=== PATIENT | female | born 1955 | race Caucasian/White ===

== ENCOUNTER → 2017-09-08 | Outpatient (CLI) | payer OTHER ==
[~2017-09-08] MED LIST: CEPH-578 PO; DIPH25TA51 PO; FLUT9.9S NS; NAPR-1192 PO; TYL3 PO
== END | disposition home or self-care (01) ==
LOC: OIH 15:37
PROVIDERS: ATTEND Internal Medicine
DX: S93.402A Sprain of unspecified ligament of left ankle, initial encounter (principal); M77.32 Calcaneal spur, left foot; X58.XXXA Exposure to other specified factors, initial encounter; Y93.89 Activity, other specified; Y92.89 Other specified places as the place of occurrence of the external cause; Y99.8 Other external cause status; M79.89 Other specified soft tissue disorders
CPT/HCPCS: 73600

== ENCOUNTER → 2017-09-21 | Outpatient (CLI) | payer OTHER | END | disposition home or self-care (01) | LOC: RAH 15:09 | PROVIDERS: ATTEND Internal Medicine | DX: M48.07 Spinal stenosis, lumbosacral region (principal); M48.05 Spinal stenosis, thoracolumbar region; M54.16 Radiculopathy, lumbar region | CPT/HCPCS: 72148 ==

== ENCOUNTER → 2017-09-28 | Outpatient (CLI) | payer OTHER | END | disposition home or self-care (01) | LOC: RAH 10:49 | PROVIDERS: ATTEND Orthopaedic Surgery | DX: M25.811 Other specified joint disorders, right shoulder (principal); M89.311 Hypertrophy of bone, right shoulder | CPT/HCPCS: 73221 ==

== ENCOUNTER → 2017-12-25 | Outpatient (CLI) | payer OTHER | END | disposition home or self-care (01) | LOC: OIH 12:42 | PROVIDERS: ATTEND Internal Medicine | DX: M47.895 Other spondylosis, thoracolumbar region (principal); G47.33 Obstructive sleep apnea (adult) (pediatric) | CPT/HCPCS: 71046 ==

== ENCOUNTER 2018-01-01 09:46 | Day surgery (SDC) | payer OTHER ==
[2017-12-31 14:31] VITALS: BP 122/72
[2018-01-01] VITALS (15 sets, daily range): BP systolic 111–139; BP diastolic 56–82
[~2018-01-01] VITALS: Ht 157.5 cm; Wt 122.9 kg
[~2018-01-01 09:46] MED LIST changes: +CEFAZOLIN 3GM /D5W 100ML 100 ML IV SCH; -CEPH-578 PO; -NAPR-1192 PO
[2018-01-01] MEDS ORDERED: LACTATED RINGERS 1000ML 1,000 ML IV ONE (10:27)
[2018-01-01] MEDS ORDERED: CEFAZOLIN SODIUM 1 GM VIAL ONE (10:27)
[2018-01-01] MEDS ORDERED: LIDOCAINE PF 2% 5ML ABBOJECT ONE ×2 (13:26→18:32)
[2018-01-01] MEDS ORDERED: PROPOFOL 10 MG/ML 20ML VIAL IV ONE (13:26)
[2018-01-01] MEDS ORDERED: DEXAMETHASONE SOD PHOSPHATE 10MG/ML 1ML VIAL ONE ×2 (13:26→18:32)
[2018-01-01] MEDS ORDERED: GLYCOPYRROLATE 0.2 MG/ML 5 ML VIAL ONE ×2 (13:26→18:32)
[2018-01-01] MEDS ORDERED: ONDANSETRON HCL 4 MG/2 ML VIAL ONE ×3 (13:26→18:32)
[2018-01-01] MEDS ORDERED: MIDAZOLAM HCL 1 MG/ML 2ML VIAL ONE (13:27)
[2018-01-01] MEDS ORDERED: FENTANYL CITRATE PF 50 MCG/1 ML 2ML VIAL ONE (13:27)
[2018-01-01] MEDS ORDERED: EPINEPHRINE 1 MG/ML 30ML VIAL IJ ONE (14:18)
[2018-01-01] MEDS ORDERED: NEOSTIGMINE METHYLSULFATE 1MG/ML IV ONE (18:32)
[2018-01-01] MEDS ORDERED: LIDOCAINE HCL-MPF 1% 5ML AMP IJ ONE (18:32)
[2018-01-01] MEDS ORDERED: LIDOCAINE HCL 4% LTA SOL 4 ML VIAL ONE (18:32)
[2018-01-01] MEDS ORDERED: ROCURONIUM BROMIDE 10MG/1ML 5ML VL ONE (18:32)
[2018-01-01] MEDS ORDERED: CEPH-578 PO (18:40)
[2018-01-01] MEDS ORDERED: TYL3 PO (18:40)
[2018-01-01] MEDS ORDERED: NAPR-1192 PO (18:40)
== END 2018-01-01 20:34 | disposition home or self-care (01) ==
LOC: DAH 09:46
PROVIDERS: ATTEND Orthopaedic Surgery
DX: M75.101 Unspecified rotator cuff tear or rupture of right shoulder, not specified as traumatic (principal); M75.41 Impingement syndrome of right shoulder; M19.011 Primary osteoarthritis, right shoulder; G89.29 Other chronic pain; G47.00 Insomnia, unspecified; M06.9 Rheumatoid arthritis, unspecified; E66.01 Morbid (severe) obesity due to excess calories; Z68.42 Body mass index [BMI] 45.0-49.9, adult
CPT/HCPCS: 29822; 29824; 29826; A4218; A4565; A4649 ×3; A4930; A6207; G0168; J0171; J0690; J1100 ×2; J2001 ×2; J2250; J2405 ×3; J2704; J2710; J3010; J3490 ×4; J7120 ×2

== ENCOUNTER 2018-07-17 04:43 | Emergency (ER) | payer OTHER ==
[~2018-07-17 04:43] MED LIST changes: -CEFAZOLIN 3GM /D5W 100ML 100 ML IV SCH; +CEPH-578 PO; +NAPR-1192 PO
[2018-07-17 05:19] LABS: APPEARANCE,URINE CLEAR (CLEAR); BILIRUBIN,URINE NEGATIVE (NEGATIVE); COLOR,URINE YELLOW (YELLOW); GLUCOSE, URINE (UA) NEGATIVE (NEGATIVE); KETONES,URINE NEGATIVE (NEGATIVE); LEUKOCYTE ESTERASE ,URINE TRACE (NEGATIVE); NITRATE,URINE NEGATIVE (NEGATIVE); OCCULT BLOOD,URINE TRACE-INTACT (NEGATIVE); PROTEIN,URINE NEGATIVE (NEGATIVE); UROBILINOGEN,URINE 0.2 mg/dL (0.2-1.0)
[2018-07-17] MEDS ORDERED: METHYLPREDNISOLONE SOD SUCC 125MG/2ML VIAL ONE (05:25)
[2018-07-17 05:27] LABS: BACTERIA,URINE Many /HPF (None Seen); RBC,URINE 0-1 /HPF (0-1)
[2018-07-17] MEDS ORDERED: IPRATROPIUM/ALBUTEROL SULFATE 3 ML SOLUTION IH ONE ×3 (05:32→06:40)
== END 2018-07-17 07:04 | disposition home or self-care (01) ==
LOC: EDH 04:43
DX: J20.9 Acute bronchitis, unspecified (principal); J06.9 Acute upper respiratory infection, unspecified; Z88.8 Allergy status to other drugs, medicaments and biological substances; Z90.710 Acquired absence of both cervix and uterus; Z72.0 Tobacco use; Z98.890 Other specified postprocedural states
CPT/HCPCS: 71045; 81001; 87804 ×2; 93005; 94640; 99285; J2930

== ENCOUNTER → 2018-11-04 | Outpatient (CLI) | payer OTHER | END | disposition home or self-care (01) | LOC: OIH 15:16 | PROVIDERS: ATTEND Internal Medicine | DX: M19.072 Primary osteoarthritis, left ankle and foot (principal) | CPT/HCPCS: 73560; 73620 ==

== ENCOUNTER → 2018-12-07 | Outpatient (CLI) | payer OTHER ==
--- NOTE | 2018-12-08 03:42 | NUR ---
PATIENT STATES SHE WANTS TO STOP SLEEP STUDY AND GO HOME DUE TO BACK PAIN FROM SLEEPING IN BED. REFUSED TO CONTINUE SLEEP STUDY AFTER SHE WAS EXPLAINED THAT IT'S BEST TO CONTINUE STUDY UNTIL 5 AM .
== END | disposition home or self-care (01) ==
LOC: SLP 20:18
PROVIDERS: ATTEND Internal Medicine
DX: G47.30 Sleep apnea, unspecified (principal)
CPT/HCPCS: 95810

== ENCOUNTER → 2018-12-15 | Outpatient (CLI) | payer OTHER | END | disposition home or self-care (01) | LOC: RAH 14:33 | PROVIDERS: ATTEND Internal Medicine | DX: M48.061 Spinal stenosis, lumbar region without neurogenic claudication (principal); M54.16 Radiculopathy, lumbar region | CPT/HCPCS: 72148 ==

== ENCOUNTER → 2018-12-20 | Outpatient (CLI) | payer OTHER | END | disposition home or self-care (01) | LOC: SLP 20:21 | PROVIDERS: ATTEND Internal Medicine | DX: G47.30 Sleep apnea, unspecified (principal) | CPT/HCPCS: 95811 ==

== ENCOUNTER → 2019-02-09 | Outpatient (CLI) | payer OTHER ==
[~2019-02-09] MED LIST changes: +REGADENOSON 0.4 MG/5 ML PF SYG IVP SCH
== END | disposition home or self-care (01) ==
LOC: RAH 08:35
PROVIDERS: ATTEND Internal Medicine
DX: I20.9 Angina pectoris, unspecified (principal)
CPT/HCPCS: 78452; 93017; 96374; A9500 ×2; J2785

== ENCOUNTER → 2019-02-10 | Outpatient (CLI) | payer OTHER ==
[~2019-02-10] MED LIST changes: -REGADENOSON 0.4 MG/5 ML PF SYG IVP SCH
== END | disposition home or self-care (01) ==
LOC: RAH 08:28
PROVIDERS: ATTEND Internal Medicine
DX: I51.7 Cardiomegaly (principal); I31.3 Pericardial effusion (noninflammatory)
CPT/HCPCS: 93306

== ENCOUNTER → 2019-03-14 | Outpatient (CLI) | payer OTHER ==
[~2019-03-14] MED LIST changes: +BIOT10005 SL; +UMEC1DIS IH
== END | disposition home or self-care (01) ==
LOC: OIH 10:34
PROVIDERS: ATTEND Internal Medicine
DX: J44.9 Chronic obstructive pulmonary disease, unspecified (principal)
CPT/HCPCS: 71046

== ENCOUNTER 2019-03-19 01:14 | Emergency (ER) | payer OTHER ==
[~2019-03-19 01:14] MED LIST changes: -CEPH-578 PO; -FLUT9.9S NS; -NAPR-1192 PO; -TYL3 PO
[2019-03-19] MEDS ORDERED: OXYCODONE/ACETAMIN 5/325MG TAB ONE ×2 (01:50→03:18)
[2019-03-19] MEDS ORDERED: KETOROLAC TROMETHAMINE 30MG/ML ONE (01:50)
[2019-03-19 01:56] LABS: BASOPHILS % (AUTO) 0.4 % (0.0-5.0); EOSINOPHILS % (AUTO) 0.8 % (0.0-8.0); HEMATOCRIT 40.8 % (36-48); MEAN CORPUSCULAR HEMOGLOBIN 31.1 pg (27.0-33.0); MEAN CORPUSCULAR HGB CONC 33.3 g/dL (32.0-36.0); MEAN CORPUSCULAR VOLUME 93.4 fL (79-99); MONOCYTES % (AUTO) 9.3 % (3.0-13.0); NEUTROPHILS % (AUTO) 72.5 % (40.0-77.0); PLATELET COUNT (AUTO) 205 K/uL (130-400); RED BLOOD CELL COUNT(AUTO) 4.37 MIL/uL (4.00-5.50); RED CELL DISTRIBUTION WIDTH 14.2 % (11.0-15.5); WHITE BLOOD COUNT (AUTO) 13.3 K/uL (4.8-10.8)
[2019-03-19 02:00] LABS: APPEARANCE,URINE Clear (CLEAR); BILIRUBIN,URINE Negative (NEGATIVE); COLOR,URINE Yellow (YELLOW); GLUCOSE, URINE (UA) Negative (NEGATIVE); KETONES,URINE Negative (NEGATIVE); LEUKOCYTE ESTERASE ,URINE Negative (NEGATIVE); NITRATE,URINE Negative (NEGATIVE); OCCULT BLOOD,URINE Negative (NEGATIVE); PH,URINE 6.5 (5.0-8.0); PROTEIN,URINE Negative (NEGATIVE); UROBILINOGEN,URINE 0.2 mg/dL (0.2-1.0)
[2019-03-19 02:10] LABS: CREATININE 0.9 mg/dL (0.5-1.5); CRP QUANTITATIVE 74.4 mg/L (0.00-9.0); POTASSIUM 3.8 mmol/L (3.5-5.1)
[2019-03-19] MEDS ORDERED: METHYLPREDNISOLONE SOD SUCC 125MG/2ML VIAL ONE (03:18)
== END 2019-03-19 03:38 | disposition home or self-care (01) ==
LOC: EDH 01:14
DX: M54.5 Low back pain (principal); J44.9 Chronic obstructive pulmonary disease, unspecified; Z90.710 Acquired absence of both cervix and uterus; Z96.652 Presence of left artificial knee joint; Z88.5 Allergy status to narcotic agent; Z88.8 Allergy status to other drugs, medicaments and biological substances; Z72.0 Tobacco use
CPT/HCPCS: 36415; 72131; 80048; 81003; 85025; 86140; 96372 ×2; 99285; J1885; J2930

== ENCOUNTER 2019-10-14 20:23 | Emergency (ER) | payer OTHER ==
[2019-10-14] MEDS ORDERED: GUAIFENESIN SUGAR-FREE 100 MG/5 ML UDCUP ONE (21:12)
[2019-10-14 21:27] LABS: BASOPHILS % (AUTO) 0.4 % (0.0-5.0); EOSINOPHILS % (AUTO) 0.8 % (0.0-8.0); LYMPHOCYTES % (AUTO) 30.9 % (21.0-51.0); MEAN CORPUSCULAR HEMOGLOBIN 29.7 pg (27.0-33.0); MEAN CORPUSCULAR HGB CONC 32.6 g/dL (32.0-36.0); MEAN CORPUSCULAR VOLUME 91.3 fL (79-99); MONOCYTES % (AUTO) 7.1 % (3.0-13.0); NEUTROPHILS % (AUTO) 60.3 % (40.0-77.0); PLATELET COUNT (AUTO) 174 K/uL (130-400); RED BLOOD CELL COUNT(AUTO) 5.15 MIL/uL (4.00-5.50); RED CELL DISTRIBUTION WIDTH 13.8 % (11.0-15.5); WHITE BLOOD COUNT (AUTO) 8.3 K/uL (4.8-10.8)
[2019-10-14] MEDS ORDERED: IPRATROPIUM/ALBUTEROL SULFATE 3 ML SOLUTION IH ONE (21:29)
[2019-10-14 21:39] LABS: CREATININE 0.9 mg/dL (0.5-1.5); POTASSIUM 3.5 mmol/L (3.5-5.1)
[2019-10-14 21:44] LABS: ALBUMIN 3.8 g/dL (3.5-5.0); BILIRUBIN,TOTAL 0.5 mg/dL (0.2-1.0); TOTAL PROTEIN, SERUM 7.7 g/dL (6.0-8.3)
== END 2019-10-14 22:53 | disposition home or self-care (01) ==
LOC: EDH 20:23
DX: J44.1 Chronic obstructive pulmonary disease with (acute) exacerbation (principal); A08.4 Viral intestinal infection, unspecified; Z88.6 Allergy status to analgesic agent; Z90.710 Acquired absence of both cervix and uterus; Z98.890 Other specified postprocedural states; Z72.0 Tobacco use; Z88.8 Allergy status to other drugs, medicaments and biological substances
CPT/HCPCS: 36415; 71046; 80053; 85025; 93005; 94640

== ENCOUNTER 2019-10-23 22:13 | Emergency (ER) | payer OTHER | END 2019-10-23 23:49 | disposition home or self-care (01) | LOC: EDH 22:13 | DX: S61.237A Puncture wound without foreign body of left little finger without damage to nail, initial encounter (principal); J44.9 Chronic obstructive pulmonary disease, unspecified; Z88.5 Allergy status to narcotic agent; Z88.8 Allergy status to other drugs, medicaments and biological substances; Z96.652 Presence of left artificial knee joint; Z90.710 Acquired absence of both cervix and uterus; Z98.890 Other specified postprocedural states; Z72.0 Tobacco use; W46.0XXA Contact with hypodermic needle, initial encounter; Y93.89 Activity, other specified; Y92.89 Other specified places as the place of occurrence of the external cause; Y99.0 Civilian activity done for income or pay | CPT/HCPCS: 36415; 80074; 86701; 87390 ==

== ENCOUNTER → 2020-12-10 | Outpatient (CLI) | payer OTHER ==
[2020-12-10 09:14] LABS: BASOPHILS % (AUTO) 0.7 % (0.0-5.0); EOSINOPHILS % (AUTO) 2.1 % (0.0-8.0); HEMATOCRIT 42.9 % (36-48); LYMPHOCYTES % (AUTO) 26.9 % (21.0-51.0); MEAN CORPUSCULAR HEMOGLOBIN 30.3 pg (27.0-33.0); MEAN CORPUSCULAR HGB CONC 32.4 g/dL (32.0-36.0); MEAN CORPUSCULAR VOLUME 93.7 fL (79-99); MONOCYTES % (AUTO) 7.4 % (3.0-13.0); NEUTROPHILS % (AUTO) 62.2 % (40.0-77.0); PLATELET COUNT (AUTO) 193 K/uL (130-400); RED BLOOD CELL COUNT(AUTO) 4.58 MIL/uL (4.00-5.50); RED CELL DISTRIBUTION WIDTH 13.4 % (11.0-15.5); WHITE BLOOD COUNT (AUTO) 8.2 K/uL (4.8-10.8)
[2020-12-10 09:22] LABS: HEMOGLOBIN A1C 5.9 % (4.0-6.0)
[2020-12-10 09:51] LABS: ALBUMIN 3.3 g/dL (3.5-5.0); BILIRUBIN,DIRECT 0.1 mg/dL (0.0-0.3); BILIRUBIN,TOTAL 0.4 mg/dL (0.2-1.0); CREATININE 0.9 mg/dL (0.5-1.5); POTASSIUM 4.1 mmol/L (3.5-5.1); THYROID STIMULATING HORMONE 1.32 uIU/mL (0.36-3.74); TOTAL PROTEIN, SERUM 6.6 g/dL (6.0-8.3)
== END | disposition home or self-care (01) ==
LOC: LAB 08:39
PROVIDERS: ATTEND Internal Medicine
DX: B07.0 Plantar wart (principal); D75.1 Secondary polycythemia; E53.8 Deficiency of other specified B group vitamins; F43.21 Adjustment disorder with depressed mood; G47.33 Obstructive sleep apnea (adult) (pediatric); L65.9 Nonscarring hair loss, unspecified; M54.12 Radiculopathy, cervical region
CPT/HCPCS: 36415; 80053; 80061; 80076; 82306; 82607; 83036; 84443; 85025

== ENCOUNTER 2021-03-14 06:11 | Day surgery (SDC) | payer OTHER ==
[2021-03-11 09:45] VITALS: BP 164/81
[2021-03-11 09:59] LABS: BASOPHILS % (AUTO) 0.5 % (0.0-5.0); HEMATOCRIT 41.8 % (36-48); LYMPHOCYTES % (AUTO) 16.5 % (21.0-51.0); MEAN CORPUSCULAR HEMOGLOBIN 30.4 pg (27.0-33.0); MEAN CORPUSCULAR HGB CONC 32.5 g/dL (32.0-36.0); MEAN CORPUSCULAR VOLUME 93.5 fL (79-99); MONOCYTES % (AUTO) 9.4 % (3.0-13.0); NEUTROPHILS % (AUTO) 69.7 % (40.0-77.0); PLATELET COUNT (AUTO) 173 K/uL (130-400); RED BLOOD CELL COUNT(AUTO) 4.47 MIL/uL (4.00-5.50); RED CELL DISTRIBUTION WIDTH 14.1 % (11.0-15.5); WHITE BLOOD COUNT (AUTO) 9.2 K/uL (4.8-10.8)
[2021-03-11 10:21] LABS: CREATININE 0.9 mg/dL (0.5-1.5); POTASSIUM 3.9 mmol/L (3.5-5.1)
[~2021-03-14] VITALS: Ht 157.5 cm; Wt 122.0 kg
[2021-03-14] VITALS (16 sets, daily range): BP systolic 123–146; BP diastolic 53–81
[~2021-03-14 06:11] MED LIST changes: +BACL10TA PO; -BIOT10005 SL; +CEFAZOLIN SODIUM 1 GM VIAL IVP SCH; -DIPH25TA51 PO; +GABA-529 PO; +SERT100T PO; -UMEC1DIS IH
[2021-03-14] MEDS ORDERED: LACTATED RINGERS 1000ML 1,000 ML IV ONE (06:49)
[2021-03-14] MEDS ORDERED: CEFAZOLIN SODIUM 1 GM VIAL ONE (07:03)
[2021-03-14] MEDS ORDERED: LIDOCAINE HCL-MPF 0.5% 50ML VIAL IJ ONE (07:48)
[2021-03-14] MEDS ORDERED: FENTANYL CITRATE PF 50 MCG/1 ML 2ML VIAL ONE (07:52)
[2021-03-14] MEDS ORDERED: MIDAZOLAM HCL 1 MG/ML 2ML VIAL ONE ×3 (07:52→09:05)
[2021-03-14] MEDS ORDERED: LIDOCAINE HCL 1% 20 ML VIAL ONE (09:17)
[2021-03-14] MEDS ORDERED: PROPOFOL 10 MG/ML 20ML VIAL IV ONE (09:22)
[2021-03-14] MEDS: BUPIVACAINE/PF 0.5% 10ML VIAL ONE ×2 (09:27→09:40)
[2021-03-14] MEDS ORDERED: CEPH500B PO (09:58)
[2021-03-14] MEDS ORDERED: TRAM50TA4 PO (09:58)
[2021-03-14] MEDS ORDERED: IPRATROPIUM/ALBUTEROL SULFATE 3 ML SOLUTION IH ONE (10:06)
[2021-03-14] MEDS ORDERED: ALBUTEROL 0.083% 2.5 MG/3 ML INH IH ONE (10:38)
== END 2021-03-14 11:25 | disposition home or self-care (01) ==
LOC: DAH 06:11
PROVIDERS: ATTEND Orthopaedic Surgery
DX: G56.03 Carpal tunnel syndrome, bilateral upper limbs (principal); Z20.822 Contact with and (suspected) exposure to COVID-19; J44.9 Chronic obstructive pulmonary disease, unspecified; G47.30 Sleep apnea, unspecified; E66.9 Obesity, unspecified; F17.210 Nicotine dependence, cigarettes, uncomplicated; M06.9 Rheumatoid arthritis, unspecified; Z98.890 Other specified postprocedural states; Z90.710 Acquired absence of both cervix and uterus; Z99.89 Dependence on other enabling machines and devices; Z98.49 Cataract extraction status, unspecified eye; Z68.42 Body mass index [BMI] 45.0-49.9, adult
CPT/HCPCS: 36415; 64721; 80048; 85025; 87635; 93005; 94640 ×2; A4215 ×2; A4221; A4222; A4223; A4565; A4649; A4657; A4663; A4930 ×3; A6223; C9803; J0690 ×2; J2250 ×3; J2704; J3010; J3490 ×2; J7120

== ENCOUNTER 2021-04-11 06:19 | Day surgery (SDC) | payer OTHER ==
[2021-04-08 12:05] LABS: BASOPHILS % (AUTO) 0.8 % (0.0-5.0); EOSINOPHILS % (AUTO) 4.3 % (0.0-8.0); MEAN CORPUSCULAR HEMOGLOBIN 30.3 pg (27.0-33.0); MEAN CORPUSCULAR HGB CONC 32.2 g/dL (32.0-36.0); MEAN CORPUSCULAR VOLUME 94.3 fL (79-99); MONOCYTES % (AUTO) 7.2 % (3.0-13.0); NEUTROPHILS % (AUTO) 58.1 % (40.0-77.0); PLATELET COUNT (AUTO) 175 K/uL (130-400); RED BLOOD CELL COUNT(AUTO) 4.35 MIL/uL (4.00-5.50); RED CELL DISTRIBUTION WIDTH 14.3 % (11.0-15.5); WHITE BLOOD COUNT (AUTO) 6.6 K/uL (4.8-10.8)
[2021-04-08 12:18] LABS: CREATININE 0.8 mg/dL (0.5-1.5); POTASSIUM 3.8 mmol/L (3.5-5.1)
[2021-04-10 13:21] VITALS: BP 136/86
[2021-04-11] VITALS (11 sets, daily range): BP systolic 118–147; BP diastolic 70–86
[~2021-04-11] VITALS: Ht 157.5 cm; Wt 123.9 kg
[~2021-04-11 06:19] MED LIST changes: +ALBU0.63 IH; +CEFAZOLIN 3GM /D5W 100ML 100 ML IV SCH; -CEFAZOLIN SODIUM 1 GM VIAL IVP SCH
[2021-04-11] MEDS ORDERED: LACTATED RINGERS 1000ML 1,000 ML IV ONE (07:00)
[2021-04-11] MEDS: CEFAZOLIN SODIUM 1 GM VIAL ONE ×2 (07:20→08:36)
[2021-04-11] MEDS ORDERED: LIDOCAINE PF 100MG/5ML (2%) SYRINGE 5ML ONE (07:21)
[2021-04-11] MEDS ORDERED: NEOSTIGMINE 5MG/5ML SYR IV ONE (07:21)
[2021-04-11] MEDS ORDERED: PROPOFOL 10 MG/ML 20ML VIAL IV ONE (07:21)
[2021-04-11] MEDS ORDERED: ONDANSETRON 4MG INJ ONE (07:21)
[2021-04-11] MEDS ORDERED: SUCCINYLCHOLINE CHLORIDE 20 MG/ML 10 ML VIAL ONE (07:21)
[2021-04-11] MEDS ORDERED: GLYCOPYRROLATE 1 MG/5 ML SYRINGE ONE (07:21)
[2021-04-11] MEDS ORDERED: DEXAMETHASONE SOD PHOSPHATE 10MG/ML 1ML VIAL ONE (07:21)
[2021-04-11] MEDS ORDERED: MIDAZOLAM HCL 1 MG/ML 2ML VIAL ONE ×2 (07:22→08:58)
[2021-04-11] MEDS ORDERED: FENTANYL CITRATE PF 50 MCG/1 ML 2ML VIAL ONE ×3 (07:23→09:27)
[2021-04-11] MEDS ORDERED: ROCURONIUM 10MG/1ML SYR 10 MG/ML ML ONE (07:23)
[2021-04-11] MEDS ORDERED: LIDOCAINE HCL-MPF 0.5% 50ML VIAL IJ ONE (07:26)
[2021-04-11] MEDS ORDERED: CEFAZOLIN SODIUM 1 GM VIAL ONE (08:54)
[2021-04-11] MEDS ORDERED: BUPIVACAINE/EPI/PF 0.25% 30ML VIAL IJ ONE (09:10)
[2021-04-11] MEDS ORDERED: LIDOCAINE HCL 1% 20 ML VIAL ONE (09:10)
[2021-04-11] MEDS ORDERED: TRAM50TA4 PO (09:46)
[2021-04-11] MEDS ORDERED: CEPH500B PO (09:46)
== END 2021-04-11 10:55 | disposition home or self-care (01) ==
LOC: DAH 06:19
PROVIDERS: ATTEND Orthopaedic Surgery
DX: G56.02 Carpal tunnel syndrome, left upper limb (principal); Z20.822 Contact with and (suspected) exposure to COVID-19; J45.909 Unspecified asthma, uncomplicated; E66.01 Morbid (severe) obesity due to excess calories; M06.9 Rheumatoid arthritis, unspecified; Z98.890 Other specified postprocedural states; Z90.710 Acquired absence of both cervix and uterus; Z98.891 History of uterine scar from previous surgery; Z82.61 Family history of arthritis; Z83.518 Family history of other specified eye disorder; Z88.8 Allergy status to other drugs, medicaments and biological substances
CPT/HCPCS: 36415; 80048; 85025; 87635; A4565; C9803; J0330; J0690; J1100; J2001; J2250; J2405; J2704; J2710; J3010; J3490; J7120

== ENCOUNTER → 2021-07-24 | Outpatient (CLI) | payer OTHER ==
[~2021-07-24] MED LIST changes: -CEFAZOLIN 3GM /D5W 100ML 100 ML IV SCH; +CEPH500B PO; +TRAM50TA4 PO
== END | disposition home or self-care (01) ==
LOC: RAH 07:38
PROVIDERS: ATTEND Internal Medicine
DX: M47.22 Other spondylosis with radiculopathy, cervical region (principal)
CPT/HCPCS: 72141

== ENCOUNTER → 2022-11-26 | Outpatient (CLI) | payer OTHER | END | disposition home or self-care (01) | LOC: RAH 09:02 | PROVIDERS: ATTEND Internal Medicine | DX: M47.817 Spondylosis without myelopathy or radiculopathy, lumbosacral region (principal); M43.5X6 Other recurrent vertebral dislocation, lumbar region; M48.061 Spinal stenosis, lumbar region without neurogenic claudication; M25.761 Osteophyte, right knee; M25.561 Pain in right knee | CPT/HCPCS: 72100; 73560 ==

== ENCOUNTER → 2024-03-09 | Outpatient (CLI) | payer OTHER | END | disposition home or self-care (01) | LOC: RAH 10:10 | PROVIDERS: ATTEND Internal Medicine | DX: M47.22 Other spondylosis with radiculopathy, cervical region (principal); M48.02 Spinal stenosis, cervical region | CPT/HCPCS: 72040 ==